=== PATIENT | male | born 2000 | race African-American/Black ===

== ENCOUNTER 2021-12-05 14:09 | Day surgery (SDC) | payer OTHER ==
[~2021-12-05] VITALS: Ht 188 cm; Wt 141.0 kg
[~2021-12-05 14:09] MED LIST: LIDOCAINE 2% 100MG/5ML SDV (FOR ANES.) As Ordered ONE; MIDAZOLAM INJ 2MG/2ML VIAL (J2250 PER 1MG) As Ordered ONE; MIDAZOLAM INJ 2MG/2ML VIAL (J2250 PER 1MG) IV PRN; NAPR-837 PO; ONDANSETRON 4MG/2ML VIAL As Ordered ONE; PERC5TAB12 PO; ROCURONIUM BROMIDE 50 MG/5 ML VIAL As Ordered ONE; dexameTHASONE 4 MG/ML 1ML VIAL (J1100 PER 1MG) As Ordered ONE; fentaNYL 100 MCG/2 ML INJECTION As Ordered ONE; fentaNYL 100 MCG/2 ML INJECTION IV PRN; propofoL 200 MG/20 ML VIAL As Ordered ONE
[2021-12-05 14:45] VITALS: BP 124/65
[2021-12-05] MEDS ORDERED: ROPIvacaine 0.5% 30ML INJECTION (J2795 PER 1MG) XX ONE (16:10)
[2021-12-05] MEDS ORDERED: LIDOCAINE 1% MDV 20ML VIAL XX ONE (16:10)
[2021-12-05] MEDS ORDERED: dexameTHASONE 10MG/1ML VIAL PRES.FREE (J1100 PER 1MG) XX ONE (16:10)
== END 2021-12-05 20:50 | disposition home or self-care (01) ==
LOC: M SDC 14:09
PROVIDERS: ATTEND Orthopaedic Surgery
DX: S82.91XA Unspecified fracture of right lower leg, initial encounter for closed fracture (principal); Z53.8 Procedure and treatment not carried out for other reasons; X58.XXXA Exposure to other specified factors, initial encounter; Y92.89 Other specified places as the place of occurrence of the external cause; Y93.9 Activity, unspecified; Y99.9 Unspecified external cause status